=== PATIENT | female | born 1980 | race Caucasian/White ===

== ENCOUNTER 2018-03-20 14:42 | Emergency (ER) | payer OTHER ==
[~2018-03-20] VITALS: Ht 165.1 cm; Wt 99.8 kg
[2018-03-20 14:55] VITALS: Ht 165.1 cm; Wt 99.8 kg
[2018-03-20 16:47] LABS: PLATELET COUNT 267 x10^3mcL (130-400)
[2018-03-20 16:49] LABS: microscopic required? YES; urine erythrocyte 1+ (NEGATIVE)
[2018-03-20 16:54] LABS: CALCIUM 8.2 mg/dL (8.5-10.1); CARBON DIOXIDE 26.3 mmol/L (21-32); CHLORIDE SERUM 94 mmol/L (98-107); CREATININE SERUM 0.6 mg/dL (0.6-1.0); GFR1 > 60 mL/min; GLUCOSE SERUM 356 mg/dL (74-106); POTASSIUM SERUM 3.9 mmol/L (3.5-5.1); SODIUM SERUM 128 mmol/L (136-145)
[2018-03-20 16:55] LABS: BASOPHIL % 0 % (0-2); RED CELL DISTRIBUTION WIDTH 19.8 % (11.5-14.5)
[2018-03-20 16:58] LABS: ALKALINE PHOSPHATASE 125 U/L (46-116); ALT/SGPT 38 U/L (14-59); AST/SGOT 56 U/L (15-37); BILIRUBIN TOTAL 0.56 mg/dL (0.20-1.00); LIPASE 98 IU/L (73-393); TOTAL PROTEIN, SERUM 7.2 g/dL (6.4-8.2)
[2018-03-20 17:00] LABS: ALBUMIN 2.5 g/dL (3.4-5.0)
[2018-03-20 19:31] VITALS: BP 111/59
== END 2018-03-20 19:31 | disposition home or self-care (01) ==
LOC: ED 14:42
PROVIDERS: Emergency Medicine
DX: N39.0 Urinary tract infection, site not specified (principal); K80.20 Calculus of gallbladder without cholecystitis without obstruction; E11.65 Type 2 diabetes mellitus with hyperglycemia
CPT/HCPCS: 82962; J0696; J1885; J3490; J7030; Q0092; Q0162